=== PATIENT | female | born 2005 | race Caucasian/White ===

== ENCOUNTER 2024-06-11 15:24 | Emergency (ER) | payer SELFPAY ==
[2024-06-11 15:28] VITALS: BP 131/85; PULSE 92; RESP 14; TEMP 36.9; O2SAT 98
--- NOTE | 2024-06-11 15:45 | ED_ITS ---
HPI - Nausea/Vomiting/Diarrhea 2 General: Chief complaint: Nausea/Vomiting/Diarrhea Stated complaint: n,v Time Seen by Provider: 06/11/24 15:39 History of Present Illness: 18-year-old female comes in today for co mplaints of nausea x 2 months with an episode of emesis last night of acid. Patient appears nontoxic. Patient reports that nothing makes his symptoms better or worse. Patient has not tried any medications [id number]. Patient has not been seen for this incident. Patient denies any routine medicines. Patient last menstrual cycle started 5 days ago. Patient reports no fever. Patient has previously injury to the right knee with some surgery. No abdominal surgeries. Patient is noted no blood in emesis. Associated nausea: Yes Associated symtoms: Reports nausea Related Data Previous Rx's Medication Instructions Recorded pantoprazole 20 mg tablet,delayed 20 mg PO DAILY #30 tabs 06/11/24 release Allergies Allergy/AdvReac Type Severity Reaction Status Date / Time No Known Allergies Allergy Verified 06/11/24 15:32 Review of Systems 2 General: Reports: 10 or more systems reviewed and unremarkable except in HPI and below GI: Reports: nausea and vomiting [facility] ED 2 PFSH: Surgical History (Updated 04/17/21 @ 15:48 by Sayra Pan MD) H/O knee surgery patellar fx 2018 right Female Reproductive History: Date of last menstrual period: 06/07/24 Physical Exam 2 Const: COMMON NORMALS: alert HENMT: COMMON NORMALS: normocephalic HEAD & SCALP: normocephalic THROAT: posterior oropharynx normal Neck/C-Spine: COMMON NORMALS: full ROM Resp: COMMON NORMALS: normal respiratory effort and clear to auscultation bilaterally AUSCULTATION: clear to auscultation bilaterally Cardio: COMMON NORMALS: regular rate RATE: regular rate Back/Pelvis: COMMON NORMALS: thoracic and lumbar spine normal to inspection Extremity: COMMON NORMALS: normal to inspection Neuro: SENSORIUM/ORIENTATION: Yes alert Skin: COMMON NORMALS: turgor normal GENERAL SKIN EXAM: turgor normal Course 2 Vital Signs: Vital signs: Vital Signs Temperature 98.5 F 06/11/24 15:28 Pulse Rate 90 06/11/24 16:01 Respiratory Rate 14 06/11/24 16:01 Blood Pressure 135/100 06/11/24 16:01 Pulse Oximetry 100 06/11/24 16:01 Oxygen Delivery Me thod Room Air 06/11/24 16:01 MDM - Nausea/Vomiting/Diarrhea Medical Decision Making 18-year-old female comes in today for complaints of midepigastric pain with emesis of acidic bile. Patient appears nontoxic. Patient appears no acute distress. Respirations are even. Abdomen soft and nontender. Vital signs are normal. Differential diagnosis includes not limited to cholecystitis, cholelithiasis, gastritis, GERD, pancreatitis, . Laboratory values were unremarkable. No abnormalities were noted. Patient be started on pantoprazole 20 mg daily for the next 3 months. Patient was recommended to follow-up with primary care in 1 to 2 weeks for recheck. Return to ED for worsening symptoms. Lab Data 06/11/24 16:06/11/24 16:27 Laboratory Results WBC 6.28 10^3/uL (4.5-13.0) 06/11/24 16: RBC 4.67 10^6/uL (3.85-5.65) 06/11/24 16: Hgb 14.00 g/dL (12.4-14.8) 06/11/24 16: Hct 41.6 % (36-47) 06/11/24 16: MCV 89.1 fl (85-98) 06/11/24 16: MCH 30.0 pg (27-33) 06/11/24 16: MCHC 33.7 g/dL (30-55) 06/11/24 16: RDW 13.4 % (12.1-15.1) 06/11/24 16: Plt Count 331 10^3/cmm (157-399) 06/11/24 16: MPV 10.0 fL (7.4-10.4) 06/11/24 16: Neut % (Auto) 62.7 % 06/11/24 16: Lymph % (Auto) 26.6 % 06/11/24 16:27 [place] % (Auto) 6.2 % 06/11/24 16: Eos % (Auto) 3.5 % 06/11/24 16: Baso % (Auto) 0.8 % 06/11/24 16: Neut # (Auto) 3.94 10^3/uL (1.8-8.0) 06/11/24 16:27 Lymph # (Auto) 1.7 10^3/uL (1.5-6.5) 06/11/24 16:27 [place] # (Auto) 0.4 10^3/uL (0.2-0.9) 06/11/24 16:27 Eos # (Auto) 0.2 10^3/uL (0.0-0.8) 06/11/24 16:27 Baso # (Auto) 0.1 10^3/uL (0.0-0.1) 06/11/24 16:27 Nucleated RBC % (auto) 0 % 06/11/24 16: Nucleated RBCs # 0.0 /100WBC 06/11/24 16:27 Sodium 140 mmol/L (136-145) 06/11/24 16:27 Potassium 3.7 mmol/L (3.5-5.1) 06/11/24 16:27 Chloride 102 mmol/L (98-107) 06/11/24 16:27 Carbon Dioxide 23 mmol/L (22-29) 06/11/24 16:27 Anion Gap 18.7 (5-19) 06/11/24 16:27 BUN 13 mg/dL (6-20) 06/11/24 16:27 Creatinine 0.7 mg/dL (0.5-0.9) 06/11/24 16:27 GFR Calculation 106.7 mL/min (90-130) 06/11/24 16:27 Glucose 123 mg/dL (65-115) H 06/11/24 16:27 Calculated Osmolality 291 mOsm/kg (285-295) 06/11/24 16:27 Calcium 9.7 mg/dL (8.5-10.5) 06/11/24 16:27 Total Bilirubin 0.4 mg/dL (0.15-1.2) 06/11/24 16:27 AST 19 U/L (0-32) 06/11/24 16:27 ALT 15 U/L (0-33) 06/11/24 16:27 Alkaline Phosphatase 91 U/L (35-105) 06/11/24 16:27 C-Reactive Protein 3.0 mg/L (0.0-4.9) 06/11/24 16:27 Total Protein 8.7 g/dL (6.6-8.7) 06/11/24 16:27 Albumin 5.0 g/dL (3.5-5.2) 06/11/24 16:27 Globulin 3.7 g/dL (1.3-4.6) 06/11/24 16:27 Lipase 44 U/L (13-60) 06/11/24 16:27 HCG, Qual Negative (Negative) 06/11/24 16:27 Urine Color Yellow (Yellow) 06/11/24 16:15 Urine Appearance Clear (CLEAR) 06/11/24 16:15 Urine pH 5.0 (5-7) 06/11/24 16:15 Ur Specific [place] 1.010 (1.005-1.030) 06/11/24 16:15 Urine Protein Negative (Negative) 06/11/24 16:15 Urine Glucose (UA) Negative (Normal) 06/11/24 16:15 Urine Ketones Negative (Negative) 06/11/24 16:15 Urine Blood Negative (Negative) 06/11/24 16:15 Urine Nitrate Negative (Negative) 06/11/24 16:15 Urine Bilirubin Negative (Negative) 06/11/24 16:15 Urine Urobilinogen 0.2 mg/dL (Negative) 06/11/24 16:15 Ur Leukocyte Esterase Negative (Negative) 06/11/24 16:15 Urine RBC 0-2 /hpf (0-2) 06/11/24 16:15 Urine WBC 0-5 /hpf (0-5) 06/11/24 16:15 Ur Squamous Epith Cells 0-5 /hpf (0-5) 06/11/24 16:15 Amorphous Sediment Not Reportable 06/11/24 16:15 Urine Bacteria None seen /hpf (NONE) 06/11/24 16:15 Hyaline Casts 0.40 /lpf 06/11/24 16:15 No radiology studies performed this visit Discharge Plan Discharge Patient Disposition: Home Clinical Impression: GERD (gastroesophageal reflux disease) Qualifiers: Esophagitis presence: esophagitis presence not specified Qualified Code(s): K 21.9 - Gastro-esophageal reflux disease without esophagitis Condition: Stable Prescriptions: New pantoprazole 20 mg tablet,delayed release (DR/EC) 20 mg PO DAILY Qty: 30 2RF Discharge Orders: Discharge ED (Routine); Ordered 06/11/24 Ordered By: Randy Parker Referrals: Lizzy Guerrero MD [Primary Care Provider] - Discharge Diet: Usual diet Discharge Activity: Increase activity as tolerated Patient Instructions: Diet for Stomach Ulcers and Gastritis (ED), GERD (Gastroesophageal Reflux Disease) (ED) Activity Restrictions/Additional Instructions: Home and rest. Take medication pantoprazole 20 mg, 1 tablet 30 minutes prior to your first meal of the day. You should start to see improvement of symptoms within 3 days of initiation of medication. Follow-up with primary care in 1 to 2 weeks for recheck. Return to ER for new concerns or worsening symptoms such as fever greater than 100.4, blood in vomit or stool, or inability to hold fluids down. Thank you for choosing [facility] for your healthcare needs today. Please realize this is an emergency room and that we are providing you with a medical screening exam and this may not be complete and all inclusive of all the testing and or work up that you may need to determine your ailment or severity of your illness. You have been screened and evaluated and felt safe for discharge. Health conditions do change or evolve sometimes and as such it is important that you follow up with your Primary Doctor to be re checked, 3-5 days is a general good time frame for follow up. You are always welcome to return to the ED for re assessment if your symptoms are worsening or you have new concerns Coding Level of Care Code ED Floor Layer Tile for Erlin Vila
[2024-06-11 15:57] VITALS: BP 138/116; PULSE 89; RESP 16; O2SAT 100
[2024-06-11 16:01] VITALS: BP 135/100; PULSE 90; RESP 14; O2SAT 100
[2024-06-11 16:24] LABS: Bilirubin Urine Negative (Negative); Blood Urine Negative (Negative); Glucose Urine UA Negative (Normal); Ketones Urine Negative (Negative); Leukocyte Esterase Urine Negative (Negative); Nitrate Urine Negative (Negative); Protein Urine Negative (Negative); Urine Appearance Clear (CLEAR); Urine Color Yellow (Yellow); Urobilinogen Urine 0.2 mg/dL (Negative)
[2024-06-11 16:26] LABS: Add Urine Microscopic? YES; Bacteria Urine None Seen /hpf; RBC Urine 0-2 /hpf (0-2); Squamous Epithelial Cell Urine 0-5 /hpf (0-5); WBC Urine 0-5 /hpf (0-5)
[2024-06-11 16:42] LABS: Basophils # 0.1 10^3/uL (0.0-0.1); Basophils % 0.8 %; Eosinophils # 0.2 10^3/uL (0.0-0.8); Eosinophils % 3.5 %; Hematocrit 41.6 % (36-47); Lymphocytes # 1.7 10^3/uL (1.5-6.5); Lymphocytes % 26.6 %; Mean Corpuscular HGB Conc 33.7 g/dL (30-55); Mean Corpuscular Volume 89.1 fl (85-98); Monocytes # 0.4 10^3/uL (0.2-0.9); Monocytes % 6.2 %; Neutrophils # 3.94 10^3/uL (1.8-8.0); Neutrophils % 62.7 %; Nucleated Red Blood Cells % 0 %; Platelet Count 331 10^3/cmm (157-399); Red Blood Count 4.67 10^6/uL (3.85-5.65); Red Cell Distribution Width 13.4 % (12.1-15.1); White Blood Count 6.28 10^3/uL (4.5-13.0)
[2024-06-11 16:57] LABS: Alanine Aminotransferase 15 U/L (0-33); Alkaline Phosphatase 91 U/L (35-105); Anion Gap 18.7 (5-19); Aspartate Amino Transferase 19 U/L (0-32); Blood Urea Nitrogen 13 mg/dL (6-20); Calcium 9.7 mg/dL (8.5-10.5); Carbon Dioxide 23 mmol/L (22-29); Chloride 102 mmol/L (98-107); Creatinine Clr Calc Pharmacy 119.8872; Globulin 3.7 g/dL (1.3-4.6); Glomerular Filtration Rate 106.7 mL/min (90-130); Glucose 123 mg/dL (65-115); Lipase 44 U/L (13-60); Osmolality Calculated 291 mOsm/kg (285-295); Potassium 3.7 mmol/L (3.5-5.1); Sodium 140 mmol/L (136-145); Total Bilirubin 0.4 mg/dL (0.15-1.2); Total Protein 8.7 g/dL (6.6-8.7)
[2024-06-11 17:02] LABS: HCG, Serum Qual Negative (Negative)
[2024-06-11 17:54] VITALS: BP 114/74; PULSE 92; O2SAT 99
== END 2024-06-11 17:55 | disposition home or self-care (01) ==
PROVIDERS: Emergency Provider Nurse Practitioner Family; PCP Family Medicine
DX: K21.9 Gastro-esophageal reflux disease without esophagitis (principal)
CPT/HCPCS: 36415; 80053; 81001; 83690; 84703; 85025; 86140; 99283

== ENCOUNTER → 2025-04-05 08:46 | Outpatient (BNVA) | payer SELFPAY | DX: R00.2 Palpitations (principal) | CPT/HCPCS: 80053; 84443 ==